=== PATIENT | male | born 1960 | race Caucasian/White ===

== ENCOUNTER 2022-05-20 14:04 | Inpatient (IN) | payer MEDICAID ==
[~2022-05-20] VITALS: Ht 172.7 cm; Wt 79.4 kg
[2022-05-20] MEDS ORDERED: IPRATROPIUM/ALBUTEROL 0.5-3(2.5)MG/3ML NEB HHN ONE (14:15)
[2022-05-20] MEDS ORDERED: METHYLPREDNISOLONE SOD SUCC 125 MG/2 ML VIAL IV ONE (14:15)
[2022-05-20 14:33] LABS: BASOPHILS % 0.9 % (0.0-2.0); EOSINOPHILS % 8.9 % (0.0-5.0); HEMOGLOBIN. 15.3 g/dL (14.0-18.0); LYMPHOCYTES % 36.3 % (20.0-50.0); MEAN CORPUSCULAR HEMOGLOBIN 30.9 pg (28.0-32.0); MEAN CORPUSCULAR VOLUME 92.6 fL (80.0-94.0); MEAN PLATELET VOLUME 9.5 fl (7.4-10.4); MONOCYTES % 7.1 % (2.0-8.0); NEUTROPHILS % 46.8 % (40.0-76.0); PLATELET 177 x1000/uL (130-400); RED BLOOD CELL COUNT 4.97 mill/uL (4.7-6.1); RED CELL DISTRIBUTION WIDTH 13.9 % (11.6-14.6)
[2022-05-20 14:41] LABS: PROTHROMBIN TIME 10.5 sec (9.6-11.0)
[2022-05-20 14:45] LABS: CHLORIDE 110 mEq/L (98-107)
[2022-05-20] MEDS: IPRATROPIUM/ALBUTEROL 0.5-3(2.5)MG/3ML NEB HHN NR ×2 (17:27→22:04)
[2022-05-20] MEDS: GUAIFENESIN 200MG/10ML SUGAR FREE UDC PO PRN (21:30)
[2022-05-21] VITALS (8 sets, daily range): BP systolic 115–143; BP diastolic 52–91
[2022-05-21] MEDS: IPRATROPIUM BROMIDE (0.02%) 0.5MG/2.5ML NEB HHN PRN ×2 (03:13→09:14)
[2022-05-21] MEDS: ALBUTEROL (0.083%) 2.5MG/3ML NEB HHN PRN ×3 (03:14→20:46)
[2022-05-21] MEDS: METHYLPREDNISOLONE SOD SUCC 40 MG/ML VIAL IV SCH ×3 (03:53→21:01)
[2022-05-21] MEDS: GUAIFENESIN 200MG/10ML SUGAR FREE UDC PO PRN (04:18)
[2022-05-21] MEDS ORDERED: INSULIN GLARGINE 100 UNITS/ML SUBCUT NR (11:45)
[2022-05-21] MEDS ORDERED: ACETAMINOPHEN 325MG TABLET PO PRN (11:45)
[2022-05-21] MEDS ORDERED: ONDANSETRON HCL 4MG/2ML INJ IV PRN (11:45)
[2022-05-21] MEDS ORDERED: DEXTROSE 50% WATER 50ML SYRINGE IV PRN (11:45)
[2022-05-21] MEDS: BLOOD SUGAR DIAGNOSTIC STRIP TEST SCH ×3 (11:55→21:01)
[2022-05-21] MEDS: INSULIN LISPRO 100 UNITS/ML SUBCUT SCH ×3 (11:57→22:55)
[2022-05-21] MEDS: IPRATROPIUM BROMIDE (0.02%) 0.5MG/2.5ML NEB HHN SCH ×4 (13:00→20:46)
[2022-05-21 15:19] LABS: *AMPHETAMINES SCREEN URINE NEGATIVE (NEGATIVE); *BARBITURATES SCREEN URINE NEGATIVE (NEGATIVE); *BENZODIAZEPINES SCREEN URINE NEGATIVE (NEGATIVE); *COCAINE SCREEN URINE NEGATIVE (NEGATIVE); CANNABINOID URINE SCREEN NEGATIVE (NEGATIVE); METHADONE URINE SCREEN NEGATIVE (NEGATIVE); OPIATES URINE SCREEN NEGATIVE (NEGATIVE); PHENCYCLIDINE URINE SCREEN NEGATIVE (NEGATIVE)
[2022-05-21] MEDS: GUAIFENESIN-DM 200MG-20MG/10ML UDC PO PRN ×2 (19:50→23:59)
[2022-05-21] MEDS: GUAIFENESIN 600MG ER TABLET PO SCH (21:01)
[2022-05-21] MEDS: INSULIN GLARGINE 100 UNITS/ML SUBCUT SCH (22:56)
[2022-05-22] VITALS (8 sets, daily range): BP systolic 97–148; BP diastolic 23–84
[2022-05-22] MEDS: IPRATROPIUM BROMIDE (0.02%) 0.5MG/2.5ML NEB HHN SCH ×5 (00:22→15:47)
[2022-05-22] MEDS: ALBUTEROL (0.083%) 2.5MG/3ML NEB HHN PRN ×4 (04:23→15:47)
[2022-05-22] MEDS: BLOOD SUGAR DIAGNOSTIC STRIP TEST SCH ×2 (07:37→12:37)
[2022-05-22] MEDS: GUAIFENESIN-DM 200MG-20MG/10ML UDC PO PRN ×2 (08:14→14:10)
[2022-05-22] MEDS: GUAIFENESIN 600MG ER TABLET PO SCH (08:14)
[2022-05-22] MEDS: INSULIN LISPRO 100 UNITS/ML SUBCUT SCH ×2 (08:21→12:37)
[2022-05-22] MEDS: INSULIN GLARGINE 100 UNITS/ML SUBCUT SCH (09:20)
[2022-05-22] MEDS: METHYLPREDNISOLONE SOD SUCC 40 MG/ML VIAL IV SCH ×2 (12:00→12:34)
[2022-05-22] MEDS ORDERED: P20 MT (12:04)
[2022-05-22] MEDS ORDERED: ALBU2.5V13 HHN (12:04)
[2022-05-22] MEDS ORDERED: IPRA3AMP9 NEB (12:04)
[2022-05-22] MEDS ORDERED: GLIP5TAB12 MT (12:04)
[2022-05-22] MEDS ORDERED: FLUT1DIS3 INH (12:04)
== END 2022-05-22 16:40 | disposition home or self-care (01) | DRG 140 ==
LOC: ER 14:20 → EDBD 14:20 → 5EST 16:51 → EDBEDREQTM 19:38 → EDBEDREQ 19:38 → EDBEDREQSVC 19:38 → ER 05-21 10:27 → CANBEDREQ 05-21 10:30
PROVIDERS: ADMIT Internal Medicine; ATTEND Internal Medicine
PROC: 5A09357 Assistance with Respiratory Ventilation, Less than 24 Consecutive Hours, Continuous Positive Airway Pressure (ICD-10-PCS; principal; 2022-05-20)
PROC: 5A09357 Assistance with Respiratory Ventilation, Less than 24 Consecutive Hours, Continuous Positive Airway Pressure (ICD-10-PCS; 2022-05-21)
DX: J44.1 Chronic obstructive pulmonary disease with (acute) exacerbation (principal); J96.00 Acute respiratory failure, unspecified whether with hypoxia or hypercapnia; E11.9 Type 2 diabetes mellitus without complications; E78.00 Pure hypercholesterolemia, unspecified; I10 Essential (primary) hypertension; Z87.891 Personal history of nicotine dependence; Z79.4 Long term (current) use of insulin
CPT/HCPCS: 36415; 71045; 80053; 80305; 82962; 83036; 83880; 84484; 85025; 93005; 94640; 94660; 99291; J1815; J2920; J2930

== ENCOUNTER 2022-09-07 16:29 | Emergency (ER) | payer MEDICAID, OTHER ==
[~2022-09-07] VITALS: Ht 175.3 cm; Wt 82.0 kg
[~2022-09-07 16:29] MED LIST: ALBU2.5V13 HHN; FLUT1DIS3 INH; GLIP5TAB12 MT; IPRA3AMP9 NEB; P20 MT
[2022-09-07 16:30] VITALS: TEMP 98.5; O2SAT 94
[2022-09-07 19:06] VITALS: BP 133/83; PULSE 94; RESP 18
[2022-09-07] MEDS ORDERED: PREDNISONE 20MG TABLET PO STA (19:06)
[2022-09-07] MEDS ORDERED: HYDROCODONE/ACETAMINOPHEN 5/325MG TABLET PO STA (19:06)
[2022-09-07] MEDS ORDERED: IPRATROPIUM BROMIDE (0.02%) 0.5MG/2.5ML NEB HHN STA (19:06)
[2022-09-07] MEDS ORDERED: ALBUTEROL (0.083%) 2.5MG/3ML NEB HHN SCH (19:30)
[2022-09-07] MEDS ORDERED: P20 MT (20:03)
[2022-09-07] MEDS ORDERED: PHEN51CR24 TP (20:03)
== END 2022-09-07 20:20 | disposition home or self-care (01) ==
LOC: ER 16:29
DX: J44.1 Chronic obstructive pulmonary disease with (acute) exacerbation (principal); K64.9 Unspecified hemorrhoids; E78.00 Pure hypercholesterolemia, unspecified; I10 Essential (primary) hypertension
CPT/HCPCS: 99283; J7512

== ENCOUNTER 2023-08-09 09:17 | Emergency (ER) | payer MEDICAID ==
[~2023-08-09] VITALS: Ht 177.8 cm; Wt 75.0 kg
[~2023-08-09 09:17] MED LIST changes: -GLIP5TAB12 MT; +GLIP5TAB22 MT; +PHEN51CR24 TP
[2023-08-09 09:21] VITALS: TEMP 98.6
[2023-08-09 09:49] VITALS: PULSE 97; RESP 22; O2SAT 97
[2023-08-09] MEDS: ALBUTEROL (0.083%) 2.5MG/3ML NEB HHN SCH (09:49)
[2023-08-09] MEDS: IPRATROPIUM BROMIDE (0.02%) 0.5MG/2.5ML NEB HHN STA (09:49)
[2023-08-09] MEDS: METHYLPREDNISOLONE SOD SUCC 125MG/2ML (ACT-O-VIAL) IV STA (09:50)
[2023-08-09] MEDS: AZITHROMYCIN 500MG/250ML 250 ML IV SCH (09:51)
[2023-08-09] MEDS: MAGNESIUM 2 G PREMIX 50 ML IV ONE (09:51)
[2023-08-09 10:01] LABS: CHLORIDE 109 mEq/L (98-107); HEMATOCRIT. 44.9 % (42.0-52.0); HEMOGLOBIN. 15.2 g/dL (14.0-18.0); MEAN CORPUSCULAR HEMOGLOBIN 31.7 pg (28.0-32.0); MEAN CORPUSCULAR HGB CONC 33.8 g/dL (31.0-37.0); MEAN CORPUSCULAR VOLUME 93.8 fL (80.0-94.0); MEAN PLATELET VOLUME 9.1 fl (7.4-10.4); PLATELET 233 x1000/uL (130-400); POTASSIUM 4.1 mEq/L (3.5-5.1); RED BLOOD CELL COUNT 4.79 mill/uL (4.7-6.1); RED CELL DISTRIBUTION WIDTH 14.1 % (11.6-14.6); SODIUM 140 mEq/L (136-145); WHITE BLOOD COUNT 10.8 x1000/uL (4.5-11.0)
[2023-08-09 10:02] LABS: CARBON DIOXIDE 27 mEq/L (21-32)
[2023-08-09 10:03] LABS: CALCIUM 8.6 mg/dL (8.7-10.4)
[2023-08-09 10:07] LABS: CREATININE 0.6 mg/dL (0.6-1.3); GLUCOSE 159 mg/dL (70-105); UREA NITROGEN BLOOD 10 mg/dL (9-23)
[2023-08-09 10:09] LABS: ALANINE AMINOTRANSFERASE 33 IU/L (10-49); ALBUMIN 3.8 g/dL (3.2-4.8); ASPARTATE AMINOTRANSFERASE 27 IU/L (<34)
[2023-08-09 10:10] LABS: PROTEIN TOTAL 6.3 g/dL (6.0-8.3)
[2023-08-09 10:13] LABS: DIFFERENTIAL COMMENT 1
[2023-08-09 10:15] VITALS: PULSE 89; RESP 18; O2SAT 100
[2023-08-09 10:25] LABS: TROPONIN I HIGH SENSITIVITY < 4 ng/L (3.0-53)
[2023-08-09 10:42] LABS: PLATELET ESTIMATE NORMAL
[2023-08-09 11:33] VITALS: PULSE 96; RESP 18; O2SAT 100
[2023-08-09] MEDS ORDERED: P20 MT (12:11)
[2023-08-09] MEDS ORDERED: AZIT250T12 MT (12:11)
[2023-08-09 13:25] VITALS: BP 145/87; PULSE 81; RESP 24
== END 2023-08-09 13:27 | disposition home or self-care (01) ==
LOC: ER 09:52 → CANBEDREQ 12:35 → ER 13:27
DX: J44.1 Chronic obstructive pulmonary disease with (acute) exacerbation (principal); E78.00 Pure hypercholesterolemia, unspecified; I10 Essential (primary) hypertension; E11.9 Type 2 diabetes mellitus without complications
CPT/HCPCS: 80053; 83880; 83690; 85025; 84484; 36415; 71045; 94640; 93005; 96368; 96365; 96366; 96375; 99285; J0456; J3475; J2930; Z7610 ×3

== ENCOUNTER 2024-09-17 10:40 | Inpatient (IN) | payer MEDICAID ==
[~2024-09-17] VITALS: Ht 175.3 cm; Wt 69.9 kg
[2024-09-17] VITALS (7 sets, daily range): BP systolic 109–138; BP diastolic 63–78; PULSE 71–111; RESP 18–24; TEMP 35.9–36.6; O2SAT 88–97
[~2024-09-17 10:40] MED LIST changes: +AZIT250T12 MT
[2024-09-17] MEDS: ALBUTEROL (0.083%) 2.5MG/3ML NEB HHN STA (11:00)
[2024-09-17] MEDS: IPRATROPIUM BROMIDE (0.02%) 0.5MG/2.5ML NEB HHN STA (11:00)
[2024-09-17] MEDS: METHYLPREDNISOLONE SOD SUCC 125MG/2ML (ACT-O-VIAL) IV STA (11:11)
[2024-09-17] MEDS: MAGNESIUM 2 G PREMIX 50 ML IV ONE (11:12)
[2024-09-17 11:17] LABS: BASOPHILS % 0.4 % (0.0-2.0); EOSINOPHILS % 8.5 % (0.0-5.0); HEMATOCRIT. 48.7 % (42.0-52.0); HEMOGLOBIN. 16.0 g/dL (14.0-18.0); LYMPHOCYTES % 17.2 % (20.0-50.0); MEAN PLATELET VOLUME 9.6 fl (7.4-10.4); MONOCYTES % 8.9 % (2.0-8.0); NEUTROPHILS % 65.0 % (40.0-76.0); PLATELET 224 x1000/uL (130-400); RED BLOOD CELL COUNT 5.29 mill/uL (4.7-6.1); RED CELL DISTRIBUTION WIDTH 14.7 % (11.6-14.6)
[2024-09-17 11:33] LABS: CREATININE 1.0 mg/dL (0.6-1.3); UREA NITROGEN BLOOD 13 mg/dL (9-23)
[2024-09-17 11:34] LABS: TROPONIN I HIGH SENSITIVITY < 4 ng/L (3.0-53)
[2024-09-17] MEDS: SODIUM CHLORIDE 0.9% (SEPSIS BOLUS) IV ONE (12:25)
[2024-09-17] MEDS ORDERED: MEROPENEM 1,000 MG in SODIUM CHLORIDE 0.9% 100 ML IV STA (12:26)
[2024-09-17] MEDS: PIPERACILLIN/TAZO 3.375G/50ML 50 ML IV ONE (12:26)
[2024-09-17 12:29] LABS: ASPARTATE AMINOTRANSFERASE 29 IU/L (<34); BILIRUBIN DIRECT 0.7 mg/dL (<=3.0); BILIRUBIN TOTAL 3.0 mg/dL (0.1-1.0); PROTEIN TOTAL 7.0 g/dL (6.0-8.3)
[2024-09-17] MEDS: VANCOMYCIN 1G PREMIX 200 ML IV ONE (12:31)
[2024-09-17] MEDS ORDERED: MEROPENEM 1GM/50ML DUPLEX 50 ML IV SCH (12:45)
[2024-09-17] MEDS ORDERED: MEROPENEM 1G/100ML 100 ML IV SCH (12:45)
[2024-09-17 13:01] LABS: BG BASE EXCESS -6.0 mmol/L (-2.0-3.0); BG CARBOXYHEMOGLOBIN 1.4 % (0.5-1.5); BG DEOXYHEMOGLOBIN 8.1 % (0.0-5.0); BG FLOW(L/min) 2.50 L/min; BG FRACTION INSPIRED OXYGEN 30; BG HCO3 ACT 18.2 mmol/L (21.0-28.0); BG METHEMOGLOBIN 0.3 % (0.5-1.5); BG OXYGEN SATURATION 91.8 % (94.0-98.0); BG OXYHEMOGLOBIN 90.2 % (94.0-98.0); BG PCO2 31.9 mmHg (35.0-48.0); BG PH 7.373 (7.350-7.450); BG PO2 62.1 mmHg (83.0-108.0); BG SAMPLE SITE RIGHT BRACHIAL; BG TOTAL HEMOGLOBIN 13.4 g/dL (13.5-17.5); BG VENT MODE NASAL CANNULA
[2024-09-17] MEDS ORDERED: DEXTROSE 50% WATER 50ML SYRINGE IV PRN (13:15)
[2024-09-17] MEDS: METHYLPREDNISOLONE SOD SUCC 125MG/2ML (ACT-O-VIAL) IV SCH (13:15)
[2024-09-17] MEDS ORDERED: DOCUSATE SODIUM 100MG CAPSULE PO PRN (13:15)
[2024-09-17] MEDS ORDERED: CLONIDINE 0.1MG TABLET PO PRN (13:15)
[2024-09-17] MEDS ORDERED: ACETAMINOPHEN 325MG TABLET PO PRN ×2 (13:15)
[2024-09-17] MEDS ORDERED: ONDANSETRON HCL 4MG/2ML INJ IV PRN (13:15)
[2024-09-17] MEDS ORDERED: AZITHROMYCIN 500MG/250ML 250 ML IV SCH (14:30)
[2024-09-17] MEDS ORDERED: CEFTRIAXONE 1GM/50ML 50 ML IV SCH (14:30)
[2024-09-17 14:55] LABS: PHOSPHORUS 2.5 mg/dL (2.5-4.9)
[2024-09-17] MEDS: IPRATROPIUM/ALBUTEROL 0.5-3(2.5)MG/3ML NEB HHN SCH (15:01)
[2024-09-17 17:07] LABS: CREATINE KINASE MB FRACTION 2.6 ng/mL (0.5-3.6)
[2024-09-17 17:08] LABS: TROPONIN I HIGH SENSITIVITY < 4 ng/L (3.0-53)
[2024-09-17] MEDS: GUAIFENESIN 200MG/10ML SUGAR FREE UDC PO PRN (17:17)
[2024-09-17] MEDS: PANTOPRAZOLE SODIUM 40 MG/VIAL IV SCH (17:57)
[2024-09-17] MEDS: SODIUM CHLORIDE 0.9% 1,000 ML IV SCH (17:57)
[2024-09-17] MEDS: ENOXAPARIN 40MG/0.4ML SYR SUBCUT SCH (17:58)
[2024-09-17] MEDS: BLOOD SUGAR DIAGNOSTIC STRIP TEST SCH (17:59)
[2024-09-17] MEDS: INSULIN LISPRO 100 UNITS/ML SUBCUT SCH (18:05)
[2024-09-17] MEDS: CEFTRIAXONE 1GM/50ML 50 ML IV SCH (21:39)
[2024-09-17] MEDS: AZITHROMYCIN 500MG/250ML 250 ML IV SCH (21:40)
[2024-09-18] VITALS (11 sets, daily range): BP systolic 109–130; BP diastolic 58–71; PULSE 86–112; RESP 18–24; TEMP 36.1–36.6; O2SAT 92–100
[2024-09-18 00:24] LABS: CREATINE KINASE MB FRACTION 3.0 ng/mL (0.5-3.6); TROPONIN I HIGH SENSITIVITY < 4 ng/L (3.0-53)
[2024-09-18 06:40] LABS: CREATININE 0.7 mg/dL (0.6-1.3); UREA NITROGEN BLOOD 13 mg/dL (9-23)
[2024-09-18 06:45] LABS: HEMATOCRIT. 42.0 % (42.0-52.0); HEMOGLOBIN. 13.8 g/dL (14.0-18.0); MEAN PLATELET VOLUME 9.7 fl (7.4-10.4); PLATELET 177 x1000/uL (130-400); RED BLOOD CELL COUNT 4.57 mill/uL (4.7-6.1); RED CELL DISTRIBUTION WIDTH 14.7 % (11.6-14.6)
[2024-09-18 09:17] LABS: HIV 1/2 AB P24AG Negative (Negative)
[2024-09-18] MEDS ORDERED: MONT-39 PO (09:38)
[2024-09-18 09:42] LABS: BAND% 10.0 % (1.0-6.0); LYMPHOCYTES % MANUAL 4.0 % (20.0-50.0); MONOCYTES % MANUAL 1.0 % (2.0-8.0); NEUTROPHILS % MANUAL 85.0 % (45.0-75.0)
[2024-09-18 09:43] LABS: PLATELET ESTIMATE NORMAL
[2024-09-18 11:01] LABS: HEPATITIS C VIR.AB 0.03 INDEXVAL (0.00-0.80)
[2024-09-18] MEDS: INSULIN LISPRO 100 UNITS/ML SUBCUT NR (12:15)
[2024-09-18] MEDS: INSULIN LISPRO 100 UNITS/ML SUBCUT SCH ×2 (12:20→16:45)
[2024-09-18] MEDS: INSULIN GLARGINE 100 UNITS/ML SUBCUT SCH (12:21)
[2024-09-18] MEDS: BUDESONIDE 0.5MG/2ML NEB HHN SCH (12:34)
[2024-09-18] MEDS: METHYLPREDNISOLONE SOD SUCC 40MG/ML (ACT-O-VIAL) IV SCH (13:46)
[2024-09-18] MEDS: CEFTRIAXONE 1GM/50ML 50 ML IV SCH (15:49)
[2024-09-18] MEDS: BLOOD SUGAR DIAGNOSTIC STRIP TEST SCH (16:54)
[2024-09-18] MEDS: IPRATROPIUM/ALBUTEROL 0.5-3(2.5)MG/3ML NEB HHN PRN (18:08)
[2024-09-19] VITALS (12 sets, daily range): BP systolic 101–118; BP diastolic 54–70; PULSE 87–99; RESP 18–20; TEMP 36.1–36.7; O2SAT 94–100
[2024-09-19 05:09] LABS: HBSAG SCREEN Negative (Negative)
[2024-09-19 06:41] LABS: HEMATOCRIT. 39.6 % (42.0-52.0); HEMOGLOBIN. 13.1 g/dL (14.0-18.0); MEAN PLATELET VOLUME 9.7 fl (7.4-10.4); PLATELET 209 x1000/uL (130-400); RED BLOOD CELL COUNT 4.33 mill/uL (4.7-6.1); RED CELL DISTRIBUTION WIDTH 14.6 % (11.6-14.6)
[2024-09-19 06:57] LABS: CREATININE 0.8 mg/dL (0.6-1.3)
[2024-09-19 06:58] LABS: UREA NITROGEN BLOOD 18 mg/dL (9-23)
[2024-09-19 07:00] LABS: PHOSPHORUS 2.3 mg/dL (2.5-4.9)
[2024-09-19 11:52] LABS: BAND% 6.0 % (1.0-6.0); LYMPHOCYTES % MANUAL 4.0 % (20.0-50.0); MONOCYTES % MANUAL 3.0 % (2.0-8.0); NEUTROPHILS % MANUAL 87.0 % (45.0-75.0); PLATELET ESTIMATE NORMAL
[2024-09-19] MEDS: CEFTRIAXONE 1GM/50ML 50 ML IV SCH (16:21)
[2024-09-19] MEDS: METRONIDAZOLE 500 MG PREMIX 100 ML IV SCH (17:18)
[2024-09-20] VITALS: BP 130/60; PULSE 93; RESP 18; TEMP 36.5; O2SAT 100
[2024-09-20 03:37] VITALS: PULSE 85; RESP 20
[2024-09-20 04:00] VITALS: BP 123/72; PULSE 81; RESP 20; TEMP 36.4; O2SAT 97
[2024-09-20 06:41] LABS: HEMATOCRIT. 40.1 % (42.0-52.0); HEMOGLOBIN. 13.1 g/dL (14.0-18.0); MEAN PLATELET VOLUME 9.3 fl (7.4-10.4); PLATELET 210 x1000/uL (130-400); RED BLOOD CELL COUNT 4.40 mill/uL (4.7-6.1); RED CELL DISTRIBUTION WIDTH 14.3 % (11.6-14.6)
[2024-09-20 07:08] LABS: CREATININE 0.7 mg/dL (0.6-1.3); UREA NITROGEN BLOOD 16 mg/dL (9-23)
[2024-09-20 07:10] LABS: PHOSPHORUS 2.2 mg/dL (2.5-4.9)
[2024-09-20 08:50] VITALS: PULSE 88; RESP 20; O2SAT 96
[2024-09-20] MEDS ORDERED: POTASSIUM PHOSPHATE 15 MMOL in DEXT 5% WATER 245 ML IV NR (10:00)
[2024-09-20 11:28] LABS: BAND% 15.0 % (1.0-6.0); LYMPHOCYTES % MANUAL 7.0 % (20.0-50.0); MONOCYTES % MANUAL 8.0 % (2.0-8.0); NEUTROPHILS % MANUAL 70.0 % (45.0-75.0); PLATELET ESTIMATE NORMAL
[2024-09-21] MEDS ORDERED: FAMOTIDINE 20MG/2ML VIAL IV SCH (09:00)
== END 2024-09-20 16:05 | disposition left against medical advice (07) | DRG 720 ==
LOC: ER 10:40 → 8WST 11:56 → EDBEDREQ 12:03 → EDBEDREQTM 12:03 → ENRESERV 12:08
PROVIDERS: ADMIT Internal Medicine; ATTEND Internal Medicine
DX: A41.9 Sepsis, unspecified organism (principal); J96.01 Acute respiratory failure with hypoxia; J69.0 Pneumonitis due to inhalation of food and vomit; J44.0 Chronic obstructive pulmonary disease with (acute) lower respiratory infection; J18.9 Pneumonia, unspecified organism; J45.901 Unspecified asthma with (acute) exacerbation; J44.1 Chronic obstructive pulmonary disease with (acute) exacerbation; E78.00 Pure hypercholesterolemia, unspecified; Z53.29 Procedure and treatment not carried out because of patient's decision for other reasons; T38.0X5A Adverse effect of glucocorticoids and synthetic analogues, initial encounter; I10 Essential (primary) hypertension; E11.65 Type 2 diabetes mellitus with hyperglycemia; Z79.899 Other long term (current) drug therapy; Z88.0 Allergy status to penicillin; Z99.81 Dependence on supplemental oxygen; Y92.89 Other specified places as the place of occurrence of the external cause; Z79.84 Long term (current) use of oral hypoglycemic drugs
CPT/HCPCS: 36415; 36600; 71045; 80048; 80076; 82375; 82550; 82553; 82805; 82962; 83036; 83605; 83735; 83880; 84100; 84145; 84484; 85025; 86705; 87340; 93005; 94070; 94640; 94664; 99291; J0456; J0696; J1650; J1815; J2185; J2470; J2543; J2919; J3370; J3475; J3490; J7030; J7060; J7626